=== PATIENT | female | born 1955 | race Caucasian/White ===

== ENCOUNTER → 2017-02-12 | Outpatient (CLI) | payer MEDICARE ==
[~2017-02-12] MED LIST: ALPR2TAB8 PO; ATOR20TA9 PO; CYCL-259 PO; DICL50TA2 PO; ESTR2TAB PO; GABA300C10 PO; HYDR25TA11 PO; LEVO88TA4 PO; MELO7.5T31 PO; PANT40TA5 PO; ZOLP10TA5 PO
== END | disposition home or self-care (01) ==
LOC: STAR 10:31
PROVIDERS: ATTEND Orthopaedic Surgery
DX: Z01.818 Encounter for other preprocedural examination (principal); R94.31 Abnormal electrocardiogram [ECG] [EKG]; M17.12 Unilateral primary osteoarthritis, left knee
CPT/HCPCS: 93005

== ENCOUNTER → 2019-09-28 | Outpatient (CLI) | payer MEDICARE ==
[~2019-09-28] MED LIST changes: +ATOR20TA37 PO; -ATOR20TA9 PO; +HYDR-826 PO; -HYDR25TA11 PO; +INUL1TAB4 PO; +MULT-449 PO; +OXYC-307 PO; +Vitamin D3 PO
[2019-09-28 10:52] LABS: MICROSCOPIC NOT IND
== END | disposition home or self-care (01) ==
LOC: STAR 09:43
PROVIDERS: ATTEND Orthopaedic Surgery
DX: Z01.818 Encounter for other preprocedural examination (principal); M17.12 Unilateral primary osteoarthritis, left knee
CPT/HCPCS: 81003; 87086; 93005

== ENCOUNTER 2019-10-07 10:06 | Observation (INO) | payer MEDICARE ==
[~2019-10-07] VITALS: Ht 149.9 cm; Wt 67.0 kg
[2019-10-07] MEDS ORDERED: CHLORHEXIDINE 15 ML UDC ONE (10:29)
[2019-10-07] MEDS ORDERED: LACTATED RINGERS 1,000 ML IV SCH (10:31)
[2019-10-07] MEDS ORDERED: LIDOCAINE-MPF 1%, 2ML ONE (10:49)
[2019-10-07] MEDS ORDERED: CHLORHEXIDINE 15 ML UDC MM ONE (11:00)
[2019-10-07] MEDS ORDERED: VANCOMYCIN PER PHARMACY MC PRN (11:30)
[2019-10-07] MEDS ORDERED: VANCOMYCIN 1,400 MG in SODIUM CHLORIDE 0.9% 250 ML IV ONE (11:33)
[2019-10-07] MEDS ORDERED: FENTANYL PF 250 MCG/5ML ONE (12:10)
[2019-10-07] MEDS ORDERED: MIDAZOLAM 1 MG/ML, 2ML ONE (12:10)
[2019-10-07] MEDS ORDERED: CEFAZOLIN 1,000 MG ONE (12:15)
[2019-10-07] MEDS ORDERED: KETOROLAC 30 MG/1 ML ONE (12:25)
[2019-10-07] MEDS ORDERED: EPHEDRINE 50 MG/ML, 1ML IVPush PRN (12:30)
[2019-10-07] MEDS ORDERED: OXYcodone 5 MG/5 ML ORAL.SOL UDC PO PRN (12:30)
[2019-10-07] MEDS ORDERED: ONDANSETRON 2MG/ML, 2ML ONE (12:30)
[2019-10-07] MEDS ORDERED: DEXAMETHASONE 4 MG/ML, 1ML ONE (12:30)
[2019-10-07] MEDS ORDERED: hydrALAzine 20 MG/ML, 1ML IV PRN (12:30)
[2019-10-07] MEDS ORDERED: MEPERIDINE/PF 25MG/0.5ML IVPush PRN (12:30)
[2019-10-07] MEDS ORDERED: PROMETHAZINE 25 MG/ML, 1ML IVPush PRN (12:30)
[2019-10-07] MEDS ORDERED: LABETALOL 5MG/ML, 20ML IV PRN (12:30)
[2019-10-07] MEDS ORDERED: ACETAMINOPHEN 325 MG TABLET PO PRN (12:30)
[2019-10-07] MEDS ORDERED: ONDANSETRON 2MG/ML, 2ML IVPush PRN (12:30)
[2019-10-07] MEDS ORDERED: PROPOFOL 10 MG/ML, 20ML ONE (12:30)
[2019-10-07] MEDS ORDERED: TRANEXAMIC ACID 100 MG/ML, 10ML ONE (12:34)
[2019-10-07] MEDS ORDERED: BUPIVACAINE/PF 0.5% ONE ×2 (13:34→15:27)
[2019-10-07] MEDS ORDERED: FENTANYL PF 100 MCG/2ML ONE ×2 (15:14→15:44)
[2019-10-07] MEDS: FENTANYL PF 100 MCG/2ML IV PRN ×2 (15:44→15:52)
[2019-10-07] MEDS ORDERED: HYDROmorphone 1 MG/ML, 1ML INJ ONE (15:44)
[2019-10-07] MEDS ORDERED: OXYcodone 5 MG/5 ML ORAL.SOL UDC ONE (15:45)
[2019-10-07] MEDS: HYDROmorphone 1 MG/ML, 1ML INJ IVPush PRN ×2 (15:49→16:11)
[2019-10-07] MEDS ORDERED: ONDANSETRON ODT 4 MG PO PRN (18:30)
[2019-10-07] MEDS ORDERED: MAGNESIUM HYDROXIDE 8%, 30ML UDC PO PRN (18:30)
[2019-10-07] MEDS ORDERED: ALUMINUM/MAG/SIMETHICONE 30 ML UDC PO PRN (18:30)
[2019-10-07] MEDS ORDERED: SENNA/DOCUSATE TABLET PO PRN (18:30)
[2019-10-07] MEDS ORDERED: POLYETHYLENE GLYCOL 17 GM PACKET PO PRN (18:30)
[2019-10-07] MEDS: ACETAMINOPHEN 325 MG TABLET PO SCH (18:30)
[2019-10-07] MEDS ORDERED: BISACODYL 10 MG SUPP PR PRN (18:30)
[2019-10-07] MEDS ORDERED: HYDROmorphone 1 MG/ML, 1ML INJ IV PRN (19:00)
[2019-10-07] MEDS ORDERED: DIAZEPAM 5 MG TABLET PO PRN (19:00)
[2019-10-07] MEDS ORDERED: CYCLOBENZAPRINE 10 MG TABLET PO PRN (19:00)
[2019-10-07] MEDS: ONDANSETRON 2MG/ML, 2ML IVPush PRN (19:09)
[2019-10-07 19:19] VITALS: BP 132/76
[2019-10-07] MEDS: ALPRazolam 1MG TAB PO PRN (20:00)
[2019-10-07] MEDS: OXYcodone 5 MG/5 ML ORAL.SOL UDC PO PRN (20:00)
[2019-10-07] MEDS: CEFAZOLIN PMX 2GM/50ML 50 ML IVPB SCH (22:00)
[2019-10-08 00:08] VITALS: BP 117/69
[2019-10-08] MEDS: ZOLPIDEM 10MG TABLET PO SCH ×2 (00:29→21:20)
[2019-10-08] MEDS: DOCUSATE 100 MG CAPSULE PO SCH ×3 (00:30→21:19)
[2019-10-08] MEDS: DIPHENHYDRAMINE 25 MG CAPSULE PO PRN ×2 (00:30→21:20)
[2019-10-08] MEDS: ATORVASTATIN 20 MG TABLET PO SCH ×2 (00:30→21:20)
[2019-10-08] MEDS: ACETAMINOPHEN 325 MG TABLET PO SCH ×6 (00:31→21:20)
[2019-10-08] MEDS: OXYcodone 5 MG/5 ML ORAL.SOL UDC PO PRN ×4 (00:32→20:58)
[2019-10-08] MEDS: SODIUM CHLORIDE FLUSH 10ML SYR IVF SCH ×3 (00:34→21:21)
[2019-10-08 03:47] VITALS: BP 109/69
[2019-10-08] MEDS: D5%-LACTATED RINGERS 1,000 ML IV SCH ×3 (04:45→17:15)
[2019-10-08 06:22] LABS: ALBUMIN 3.1 g/dL (3.4-5.0); ANION GAP 9 mmol/L (5-15); CALCIUM 8.2 mg/dL (8.5-10.1); CHLORIDE 101 mmol/L (98-107)
[2019-10-08 06:23] LABS: CREATININE 0.97 mg/dL (0.55-1.02)
[2019-10-08 06:24] VITALS: BP 117/73
[2019-10-08] MEDS: LEVOTHYROXINE 88 MCG TABLET PO SCH (06:35)
[2019-10-08] MEDS: CEFAZOLIN PMX 2GM/50ML 50 ML IVPB SCH (06:35)
[2019-10-08] MEDS: PANTOPRAZOLE 40MG TABLET PO SCH (06:35)
[2019-10-08] MEDS: ASPIRIN 81 MG TABLET EC PO SCH ×2 (06:35→17:15)
[2019-10-08] MEDS: ONDANSETRON 2MG/ML, 2ML IVPush PRN ×2 (06:42→21:20)
[2019-10-08] MEDS: CALCIUM/VITAMIN D3 250-125 TABLET PO SCH ×3 (08:00→17:15)
[2019-10-08] MEDS: ESTRADIOL 1 MG TABLET PO SCH (08:02)
[2019-10-08] MEDS: ASCORBIC ACID 500 MG TABLET PO SCH (08:03)
[2019-10-08] MEDS: FERROUS SULFATE 325 MG TABLET PO SCH ×2 (08:03→17:15)
[2019-10-08] MEDS: PSYLLIUM PACKET PO SCH (08:03)
[2019-10-08] MEDS: MULTIVITAMINS/MINERALS TABLET PO SCH (08:03)
[2019-10-08 12:33] VITALS: BP 114/59
[2019-10-08] MEDS: ALPRazolam 1MG TAB PO PRN (16:04)
[2019-10-08 18:47] VITALS: BP 105/65
[2019-10-09 01:08] VITALS: BP 109/69
[2019-10-09] MEDS: ACETAMINOPHEN 325 MG TABLET PO SCH ×4 (01:11→11:51)
[2019-10-09] MEDS: OXYcodone 5 MG/5 ML ORAL.SOL UDC PO PRN ×3 (01:11→10:33)
[2019-10-09] MEDS: D5%-LACTATED RINGERS 1,000 ML IV SCH ×2 (03:00→11:00)
[2019-10-09] MEDS: PANTOPRAZOLE 40MG TABLET PO SCH (06:21)
[2019-10-09] MEDS: ASPIRIN 81 MG TABLET EC PO SCH (06:21)
[2019-10-09] MEDS: ONDANSETRON 2MG/ML, 2ML IVPush PRN (06:21)
[2019-10-09] MEDS: LEVOTHYROXINE 88 MCG TABLET PO SCH (06:21)
[2019-10-09 07:12] VITALS: BP 112/70
[2019-10-09] MEDS: FERROUS SULFATE 325 MG TABLET PO SCH (07:49)
[2019-10-09] MEDS: ESTRADIOL 1 MG TABLET PO SCH (07:49)
[2019-10-09] MEDS: PSYLLIUM PACKET PO SCH (07:49)
[2019-10-09] MEDS: ASCORBIC ACID 500 MG TABLET PO SCH (07:49)
[2019-10-09] MEDS: DIPHENHYDRAMINE 25 MG CAPSULE PO PRN (07:49)
[2019-10-09] MEDS: DOCUSATE 100 MG CAPSULE PO SCH (07:49)
[2019-10-09] MEDS: CALCIUM/VITAMIN D3 250-125 TABLET PO SCH ×2 (07:49→11:51)
[2019-10-09] MEDS: MULTIVITAMINS/MINERALS TABLET PO SCH (07:49)
[2019-10-09] MEDS: SODIUM CHLORIDE FLUSH 10ML SYR IVF SCH (07:50)
[2019-10-09] MEDS ORDERED: OXYC5SOL8 PO (11:15)
[2019-10-09] MEDS ORDERED: ONDA4TAB7 PO (11:15)
[2019-10-09 12:35] VITALS: BP 108/66
== END 2019-10-09 13:06 | disposition home or self-care (01) ==
LOC: OUT 10:06 → 4NE 17:33 → OUT 19:22 → 4NE 19:22 → DCLOUNGE 10-09 12:52
PROVIDERS: ADMIT Orthopaedic Surgery; ATTEND Orthopaedic Surgery
DX: Z03.818 Encounter for observation for suspected exposure to other biological agents ruled out (principal); T84.84XA Pain due to internal orthopedic prosthetic devices, implants and grafts, initial encounter; M17.12 Unilateral primary osteoarthritis, left knee; E78.5 Hyperlipidemia, unspecified; E03.9 Hypothyroidism, unspecified; Z79.899 Other long term (current) drug therapy; F32.9 Major depressive disorder, single episode, unspecified; F41.9 Anxiety disorder, unspecified
CPT/HCPCS: 27487; 36415; 73560; 80048; 82040; 85014; 85018; 87070; 87075; 87176; 87205; 87635; 96365; 96366; 96375; 96376; 97116; 97162; 97166; 97530; C1713; C1776; G0378; J0690; J1100; J1170; J1885; J2250; J2405; J2704; J3010; J3370; J7050; J7120; J7121; Q0162; Q0163; S0020